=== PATIENT | male | born 1995 | race African-American/Black ===

== ENCOUNTER 2017-12-10 19:10 | Emergency (ER) | payer MEDICAID ==
[~2017-12-10] VITALS: Ht 188 cm; Wt 58.6 kg
[2017-12-10] MEDS ORDERED: IBUPROFEN 600MG TABLET PO STA (20:51)
[2017-12-10 21:49] LABS: BASOPHILS % 0.5 % (0.0-2.0); EOSINOPHILS % 2.2 % (0.0-5.0); HEMATOCRIT. 40.6 % (42.0-52.0); HEMOGLOBIN. 13.9 g/dL (14.0-18.0); LYMPHOCYTES % 48.9 % (20.0-50.0); MEAN CORPUSCULAR HEMOGLOBIN 31.4 pg (28.0-32.0); MEAN CORPUSCULAR VOLUME 91.9 fL (80.0-94.0); MEAN PLATELET VOLUME 7.1 fl (7.4-10.4); MONOCYTES % 6.9 % (2.0-8.0); NEUTROPHILS % 41.5 % (40.0-76.0); PLATELET 305 x1000/uL (130-400); RED BLOOD CELL COUNT 4.42 mill/uL (4.7-6.1); RED CELL DISTRIBUTION WIDTH 13.6 % (11.6-14.6)
[2017-12-10 21:52] LABS: CHLORIDE 103 mEq/L (98-107)
[2017-12-10 22:55] VITALS: BP 126/79
== END 2017-12-10 23:29 | disposition home or self-care (01) ==
LOC: ER 20:23
DX: R53.1 Weakness (principal)
CPT/HCPCS: 36415; 80048; 85025; 99284; Z7610

== ENCOUNTER 2023-06-15 09:54 | Emergency (ER) | payer MEDICAID, OTHER ==
[~2023-06-15] VITALS: Ht 188 cm; Wt 49.0 kg
[2023-06-15 10:00] VITALS: BP 131/48; PULSE 100; RESP 18; TEMP 99.1; O2SAT 99
[2023-06-15] MEDS ORDERED: IBUP-2029 MT (12:09)
== END 2023-06-15 13:08 | disposition home or self-care (01) ==
LOC: ER 09:54
DX: M79.645 Pain in left finger(s) (principal); M79.10 Myalgia, unspecified site; F41.9 Anxiety disorder, unspecified; J45.909 Unspecified asthma, uncomplicated; F20.9 Schizophrenia, unspecified
CPT/HCPCS: 73130; 99283